=== PATIENT | male | born 1960 | race Caucasian/White ===

== ENCOUNTER 2017-05-14 14:20 | Emergency (ER) | payer OTHER, BC ==
[~2017-05-14] VITALS: Ht 190.5 cm; Wt 104.3 kg
[~2017-05-14 14:20] MED LIST: ALBUTEROL2.5 MG/3 M INH; CIPROFLOXACIN500 MG PO; FLOMAX0.4 MG PO; HYDROCODONE-IB1 EACH PO; IBUPROFEN400 MG PO; LISINOPRIL10 MG PO; LITHIUM CARBON300 M1 PO; LOVASTATIN10 MG PO; NORCO 10-325 T1 EACH PO; NORCO 5-325 TA1 EACH PO
[2017-05-14] MEDS ORDERED: BUPROPION XL150 MG PO (14:34)
[2017-05-14] MEDS ORDERED: FLUOXETINE HCL20 MG PO (14:35)
== END 2017-05-14 14:44 | disposition home or self-care (01) ==
LOC: ED 14:20
DX: M25.522 Pain in left elbow (principal); M25.521 Pain in right elbow; Z00.8 Encounter for other general examination

== ENCOUNTER 2018-05-06 14:36 | Emergency (ER) | payer OTHER, BC ==
[~2018-05-06] VITALS: Ht 190.5 cm; Wt 104.3 kg
[~2018-05-06 14:36] MED LIST changes: +BUPROPION XL150 MG PO; +FLUOXETINE HCL20 MG PO
== END 2018-05-06 14:54 | disposition home or self-care (01) ==
LOC: ED 14:36
DX: M25.511 Pain in right shoulder (principal)

== ENCOUNTER 2021-11-11 12:25 | Emergency (ER) | payer OTHER ==
[~2021-11-11] VITALS: Ht 190.5 cm; Wt 117.9 kg
[2021-11-11] MEDS ORDERED: HYDROXYZINE PAM50 MG PO (12:50)
[2021-11-11] MEDS ORDERED: PRAZOSIN HCL5 MG PO (12:50)
[2021-11-11] MEDS ORDERED: TAMSULOSIN HCL0.4 MG PO (12:51)
[2021-11-11] MEDS ORDERED: ADULT LOW DOSE81 MG PO (12:52)
[2021-11-11] MEDS ORDERED: SILDENAFIL CIT100 MG PO (12:53)
== END 2021-11-11 13:59 | disposition home or self-care (01) ==
LOC: ED 12:25
DX: S61.217A Laceration without foreign body of left little finger without damage to nail, initial encounter (principal); W26.8XXA Contact with other sharp object(s), not elsewhere classified, initial encounter; E78.5 Hyperlipidemia, unspecified; I10 Essential (primary) hypertension; Z87.891 Personal history of nicotine dependence; Z88.8 Allergy status to other drugs, medicaments and biological substances; Z79.899 Other long term (current) drug therapy; Z79.82 Long term (current) use of aspirin
CPT/HCPCS: 12002; 99282-25

== ENCOUNTER 2024-05-02 12:13 | Emergency (ER) | payer MEDICARE, OTHER ==
[~2024-05-02] VITALS: Ht 190.5 cm; Wt 123.0 kg
[~2024-05-02 12:13] MED LIST changes: +ADULT LOW DOSE81 MG PO; +HYDROXYZINE PAM50 MG PO; +PRAZOSIN HCL5 MG PO; +SILDENAFIL CIT100 MG PO; +TAMSULOSIN HCL0.4 MG PO
[2024-05-02] MEDS ORDERED: DICLOFENAC POTA50 MG PO (12:39)
[2024-05-02] MEDS ORDERED: ALLOPURINOL100 MG PO (12:39)
[2024-05-02] MEDS ORDERED: OMEPRAZOLE20 MG PO (12:39)
[2024-05-02] MEDS ORDERED: MAGNESIUM100 MG PO (12:40)
[2024-05-02] MEDS ORDERED: D3-200050 MCG PO (12:40)
[2024-05-02] MEDS ORDERED: ondansetron HCL 4 MG/2 ML VIAL IV ONE (12:45)
[2024-05-02] MEDS ORDERED: KETOROLAC TROMETHAMINE 30 MG/ML VIAL IV ONE (12:45)
[2024-05-02 13:00] LABS: BASOPHILS 0.8 % (0-2); HEMATOCRIT 43.7 % (35.0-50.0); HEMOGLOBIN 15.1 g/dL (12.0-18.0); LYMPHOCYTES 19.6 % (24-44); MCH 33.2 (27-36); MCHC 34.6 g/dl (30-36); MONOCYTES 8.9 % (0-12); NEUTROPHILS 69.7 % (39-80); PLATELET COUNT 239 K/uL (140-440); RBC 4.56 M/ul (4.3-5.7); RDW 13.3 (10.5-15.0)
[2024-05-02 13:01] LABS: BILIRUBIN, URINE NEGATIVE (negative); BLOOD/HGB, URINE NEGATIVE (Negative); KETONE, URINE NEGATIVE (Negative); LEUK ESTERASE, URINE NEGATIVE (negative); NITRITE, URINE NEGATIVE (negative)
[2024-05-02 13:12] LABS: ALBUMIN 3.7 g/dL (3.4-5.0); ALBUMIN/GLOBULIN RATIO 1.06 (1.1-2.4); ANION GAP 15.7 (7-21); BILIRUBIN, TOTAL 0.3 ng/dL (0.2-1.0); BUN/CREATININE RATIO 16.66 (6.0-28.6); CALCIUM 8.8 mg/dL (8.5-10.1); CREATININE, SERUM 1.5 mg/dL (0.70-1.30); POTASSIUM 3.7 mmol/L (3.5-5.1); PROTEIN, TOTAL 7.2 g/dL (6.4-8.2)
[2024-05-02 14:20] VITALS: BP 141/93
== END 2024-05-02 14:18 | disposition home or self-care (01) ==
LOC: ED 12:13
PROVIDERS: Emergency Medicine
DX: R10.9 Unspecified abdominal pain (principal); K80.20 Calculus of gallbladder without cholecystitis without obstruction; N20.0 Calculus of kidney; I10 Essential (primary) hypertension; Z87.891 Personal history of nicotine dependence; Z88.8 Allergy status to other drugs, medicaments and biological substances; Z79.899 Other long term (current) drug therapy; Z79.82 Long term (current) use of aspirin
CPT/HCPCS: 36415; 74176; 80053; 81003; 85025; 96374; 96375; 99284-25; J1885; J2405